=== PATIENT | male | born 1950 | race Two or more races ===

== ENCOUNTER 2018-06-10 11:31 | Inpatient (IN) | payer OTHER ==
[~2018-06-10] VITALS: Ht 165.1 cm; Wt 108.8 kg
[2018-06-10 13:19] LABS: Basophils # (auto) 0 uL; Basophils % (auto) 0.4 % (0.0-2.0); Eosinophils # (auto) 0.2 uL; Eosinophils % (auto) 2.9 % (0.0-7.0); Hematocrit 34.3 % (41.0-53.0); Lymphocytes % (auto) 14.6 % (10.0-50.0); Mean Corpuscular Hemoglobin 29.8 pg (28.0-32.0); Mean Corpuscular Hgb Conc. 32.1 g/dL (32.0-36.0); Mean Corpuscular Volume 92.8 fL (80.0-100.0); Monocytes # (auto) 0.5 uL; Monocytes % (auto) 7.1 % (0.0-12.0); Neutrophils # (auto) 5.3 uL; Nucleated Red Blood Cells % 0.1 %; Platelet Count (auto) 240 10^3/uL (140-450); Red Blood Cells 3.69 10^6/uL (4.5-5.90); Red Cell Distribution Width 19.6 % (11.8-14.3); White Blood Cell 7.1 10^3/uL (4.4-10.8)
[2018-06-10 13:46] LABS: Alanine Aminotransferase 12 U/L (16-61); Albumin 2.9 g/dL (3.4-5.0); Alkaline Phosphatase 135 U/L (45-117); Anion Gap 10 (5-15); Aspartate Aminotransferase 14 U/L (15-37); BUN/Creatinine Ratio 6.9; Bilirubin, Total 0.4 mg/dL (0.2-1.0); Blood Urea Nitrogen 47 mg/dL (7-18); Calcium 9.2 mg/dL (8.5-10.1); Carbon Dioxide 22 mmol/L (21-32); Chloride 100 mmol/L (98-107); GFR African American 10 mL/min; GFR Non-African American 9 mL/min; Glucose 129 mg/dL (74-106); Potassium 4.1 mmol/L (3.5-5.1); Sodium 132 mmol/L (136-145)
[2018-06-10 13:50] LABS: INR 0.96 (0.9-1.15); Partial Thromboplastin Time 28.2 sec (23.78-33.04); Prothrombin Time 10.3 sec (9.27-12.13)
[2018-06-10] MEDS ORDERED: LACTULOSE 20Gm/30ML SOLN PO PRN (14:30)
[2018-06-10] MEDS ORDERED: NITROGLYCERIN 0.4 MG SL TAB SL PRN (14:30)
[2018-06-10] MEDS ORDERED: LORazepam 0.5 MG TAB PO PRN (14:30)
[2018-06-10] MEDS ORDERED: ACETAMINOPHEN 500 MG TAB PO PRN (14:30)
[2018-06-10] MEDS ORDERED: MORPHINE SULF INJ 2 MG/ML SYRINGE 1ML IV PRN ×2 (14:30→15:45)
[2018-06-10] MEDS ORDERED: ENOXAPARIN SOD 30 MG/0.3 ML SYRINGE SC ONE (14:30)
[2018-06-10] MEDS ORDERED: MORPHINE SULFATE 4 MG/ML SYR/VIAL IV PRN (14:30)
[2018-06-10] MEDS ORDERED: PROMETHAZINE HCL 25 MG/ML 1ML IV PRN (14:30)
[2018-06-10] MEDS ORDERED: HYDROcodone-ACET 5/325MG TAB PO PRN (14:30)
[2018-06-10] MEDS ORDERED: TEMAZEPAM 15 MG CAP PO PRN (14:30)
[2018-06-10] MEDS ORDERED: CALC667C PO (16:10)
[2018-06-10] MEDS ORDERED: APIX2.5T PO (16:10)
[2018-06-10] MEDS ORDERED: PANT40TA2 PO (16:10)
[2018-06-10] MEDS ORDERED: SEVE800T8 PO (16:10)
[2018-06-10] MEDS ORDERED: MIDO5TAB PO (16:10)
[2018-06-10] MEDS ORDERED: GLIM4TAB42 PO (16:10)
[2018-06-10] MEDS ORDERED: AMIO200T33 PO (16:10)
[2018-06-10] MEDS: InsuLIN REG 1unit/0.01ml Soln (100units/ml) SC SCH ×2 (17:00→22:00)
[2018-06-10 17:08] VITALS: BP 105/69
[2018-06-10] MEDS: DEXTROSE (50%) 50ML SYRG IV PRN ×2 (19:13→22:29)
[2018-06-10] MEDS: ACCU-CHEK COMFORT CURVE STRIP VI SCH ×2 (19:13→22:29)
[2018-06-10] MEDS: SODIUM CHLOR 0.9% PF (SALINE LOCK) 10ML VIAL/SYR IV SCH (22:00)
[2018-06-10 22:06] VITALS: BP 137/59
[2018-06-11] MEDS: DEXTROSE (50%) 50ML SYRG IV PRN ×3 (02:13→08:21)
[2018-06-11] MEDS ORDERED: D5W 5% 1,000 ML IV ONE (02:15)
[2018-06-11 05:00] VITALS: BP 133/68
[2018-06-11] MEDS: SODIUM CHLOR 0.9% PF (SALINE LOCK) 10ML VIAL/SYR IV SCH ×3 (06:00→23:09)
[2018-06-11] MEDS: InsuLIN REG 1unit/0.01ml Soln (100units/ml) SC SCH ×4 (06:38→22:00)
[2018-06-11] MEDS: ACCU-CHEK COMFORT CURVE STRIP VI SCH ×4 (06:38→23:10)
[2018-06-11 08:00] VITALS: BP 128/62
[2018-06-11] MEDS: Glucerna Carbsteady SHAKE Vanilla 8oz PO SCH ×2 (08:00→17:46)
[2018-06-11] MEDS ORDERED: SODIUM CHL 0.9% 1000 ML BAG XX ONE (08:00)
[2018-06-11] MEDS: DEXTROSE 10% 1,000 ML IV SCH (09:27)
[2018-06-11 09:45] VITALS: BP 128/62
[2018-06-11] MEDS ORDERED: ENOXAPARIN SOD 30 MG/0.3 ML SYRINGE SC SCH (10:00)
[2018-06-11] MEDS: SEVELAMER 800 MG TAB PO SCH ×2 (12:00→17:45)
[2018-06-11] MEDS: CALCIUM ACETATE 667 MG CAP PO SCH ×2 (12:00→17:45)
[2018-06-11 13:00] VITALS: BP 108/60
[2018-06-11] MEDS ORDERED: PATIENTS OWN MEDICATION (Sevelamer Carbonate (Renvela) 800 MG) PO SCH (14:00)
[2018-06-11] MEDS ORDERED: MIDODRINE HCL 5 MG PO SCH (14:00)
[2018-06-11] MEDS: APIXABAN 2.5 MG TAB PO SCH ×2 (15:12→22:15)
[2018-06-11] MEDS: MIDODRINE HCL 10 MG TAB PO SCH ×2 (15:12→22:19)
[2018-06-11] MEDS: AMIODARONE HCL 200 MG TAB PO SCH (15:12)
[2018-06-11] MEDS: PANTOPRAZOLE 40 MG TAB PO SCH (15:12)
[2018-06-11 16:59] VITALS: BP 106/53
[2018-06-11 22:00] VITALS: BP 109/52
[2018-06-12] MEDS: DEXTROSE 10% 1,000 ML IV SCH ×2 (02:15→22:27)
[2018-06-12 05:00] VITALS: BP 127/55
[2018-06-12] MEDS: ACCU-CHEK COMFORT CURVE STRIP VI SCH ×4 (06:38→22:26)
[2018-06-12] MEDS: InsuLIN REG 1unit/0.01ml Soln (100units/ml) SC SCH ×4 (06:38→22:00)
[2018-06-12] MEDS: SODIUM CHLOR 0.9% PF (SALINE LOCK) 10ML VIAL/SYR IV SCH ×3 (06:38→22:25)
[2018-06-12] MEDS: MIDODRINE HCL 10 MG TAB PO SCH ×3 (06:38→22:00)
[2018-06-12 07:31] LABS: BUN/Creatinine Ratio 5.4; Calcium 7.8 mg/dL (8.5-10.1); Phosphorus 1.7 mg/dL (2.5-4.90); Potassium 3.1 mmol/L (3.5-5.1)
[2018-06-12 08:00] VITALS: BP 118/53
[2018-06-12] MEDS: Glucerna Carbsteady SHAKE Vanilla 8oz PO SCH ×2 (08:00→18:00)
[2018-06-12] MEDS: CALCIUM ACETATE 667 MG CAP PO SCH ×3 (08:10→18:14)
[2018-06-12] MEDS: SEVELAMER 800 MG TAB PO SCH ×2 (08:11→12:29)
[2018-06-12 09:00] VITALS: BP 118/53
[2018-06-12] MEDS ORDERED: PANTOPRAZOLE SODIUM SESQUIHYDR PO SCH (10:00)
[2018-06-12] MEDS: AMIODARONE HCL 200 MG TAB PO SCH (10:30)
[2018-06-12] MEDS: APIXABAN 2.5 MG TAB PO SCH ×2 (10:31→22:25)
[2018-06-12] MEDS: PANTOPRAZOLE 40 MG TAB PO SCH (10:31)
[2018-06-12 13:00] VITALS: BP 123/59
[2018-06-12 17:00] VITALS: BP 124/56
[2018-06-12 22:00] VITALS: BP 151/51
[2018-06-13 05:00] VITALS: BP 122/63
[2018-06-13 05:54] LABS: Calcium 7.8 mg/dL (8.5-10.1); Potassium 3.3 mmol/L (3.5-5.1)
[2018-06-13] MEDS: MIDODRINE HCL 10 MG TAB PO SCH ×3 (06:00→21:56)
[2018-06-13] MEDS: SODIUM CHLOR 0.9% PF (SALINE LOCK) 10ML VIAL/SYR IV SCH ×3 (06:56→22:00)
[2018-06-13] MEDS: ACCU-CHEK COMFORT CURVE STRIP VI SCH ×4 (06:56→22:00)
[2018-06-13] MEDS: InsuLIN REG 1unit/0.01ml Soln (100units/ml) SC SCH ×5 (06:57→22:00)
[2018-06-13] MEDS: Glucerna Carbsteady SHAKE Vanilla 8oz PO SCH (08:00)
[2018-06-13 08:16] VITALS: BP 133/68
[2018-06-13] MEDS: PANTOPRAZOLE 40 MG TAB PO SCH (09:38)
[2018-06-13] MEDS: APIXABAN 2.5 MG TAB PO SCH ×2 (09:38→21:55)
[2018-06-13] MEDS: AMIODARONE HCL 200 MG TAB PO SCH (09:38)
[2018-06-13] MEDS: CALCIUM ACETATE 667 MG CAP PO SCH ×3 (09:39→17:27)
[2018-06-13] MEDS: DEXTROSE 10% 1,000 ML IV SCH (09:39)
[2018-06-13] MEDS ORDERED: DEXTROSE 10% 1,000 ML IV SCH (11:00)
[2018-06-13] MEDS: Ensure Enlive Strawberry 8oz Bottle PO SCH ×2 (12:00→18:00)
[2018-06-13 12:59] LABS: Hepatitis A Ab IgM Negative; Hepatitis B Core IgM Negative
[2018-06-13 13:00] VITALS: BP 127/70
[2018-06-13 13:00] LABS: Hepatitis B Surface Antigen Negative (Negative); Hepatitis C Antibody Negative (Negative)
[2018-06-13 17:00] VITALS: BP 138/63
[2018-06-13] MEDS ORDERED: ASCORBIC ACID 500 MG TAB PO ONE (17:30)
[2018-06-13] MEDS: ASCORBIC ACID 500 MG TAB PO SCH (21:56)
[2018-06-13] MEDS: ATORVASTATIN 20 MG TAB PO SCH (21:56)
[2018-06-13 22:00] VITALS: BP 130/77
[2018-06-14 05:30] VITALS: BP 136/70
[2018-06-14] MEDS: InsuLIN REG 1unit/0.01ml Soln (100units/ml) SC SCH ×4 (05:49→22:00)
[2018-06-14] MEDS: ACCU-CHEK COMFORT CURVE STRIP VI SCH ×4 (05:50→22:00)
[2018-06-14] MEDS: MIDODRINE HCL 10 MG TAB PO SCH ×3 (06:13→17:19)
[2018-06-14] MEDS: SODIUM CHLOR 0.9% PF (SALINE LOCK) 10ML VIAL/SYR IV SCH ×3 (06:13→22:00)
[2018-06-14 06:20] LABS: Calcium 8.3 mg/dL (8.5-10.1); Potassium 3.2 mmol/L (3.5-5.1)
[2018-06-14] MEDS: Ensure Enlive Strawberry 8oz Bottle PO SCH ×3 (08:00→18:17)
[2018-06-14] MEDS: CALCIUM ACETATE 667 MG CAP PO SCH ×3 (08:24→18:18)
[2018-06-14 08:54] VITALS: BP 158/72
[2018-06-14] MEDS: APIXABAN 2.5 MG TAB PO SCH ×2 (09:56→22:42)
[2018-06-14] MEDS: ASCORBIC ACID 500 MG TAB PO SCH ×2 (09:56→22:42)
[2018-06-14] MEDS: PANTOPRAZOLE 40 MG TAB PO SCH (09:56)
[2018-06-14] MEDS: AMIODARONE HCL 200 MG TAB PO SCH (09:57)
[2018-06-14 11:52] VITALS: BP 152/68
[2018-06-14 17:39] VITALS: BP 124/61
[2018-06-14 21:43] VITALS: BP 136/79
[2018-06-14] MEDS: ATORVASTATIN 20 MG TAB PO SCH (22:42)
[2018-06-15 05:30] VITALS: BP 131/56
[2018-06-15] MEDS: ACCU-CHEK COMFORT CURVE STRIP VI SCH ×2 (06:05→11:30)
[2018-06-15] MEDS: InsuLIN REG 1unit/0.01ml Soln (100units/ml) SC SCH ×2 (06:05→11:30)
[2018-06-15] MEDS: SODIUM CHLOR 0.9% PF (SALINE LOCK) 10ML VIAL/SYR IV SCH ×2 (06:06→13:26)
[2018-06-15] MEDS: MIDODRINE HCL 10 MG TAB PO SCH ×2 (06:12→13:27)
[2018-06-15] MEDS: Ensure Enlive Strawberry 8oz Bottle PO SCH ×2 (08:00→12:14)
[2018-06-15 08:43] VITALS: BP 132/68
[2018-06-15] MEDS: CALCIUM ACETATE 667 MG CAP PO SCH ×2 (10:45→12:15)
[2018-06-15] MEDS: AMIODARONE HCL 200 MG TAB PO SCH (10:47)
[2018-06-15] MEDS: PANTOPRAZOLE 40 MG TAB PO SCH (10:47)
[2018-06-15] MEDS: ASCORBIC ACID 500 MG TAB PO SCH (10:47)
[2018-06-15] MEDS: APIXABAN 2.5 MG TAB PO SCH (10:47)
[2018-06-15 12:15] VITALS: BP 129/63
== END 2018-06-15 15:15 | disposition home or self-care (01) | DRG 682 ==
LOC: ER 11:31 → TELE 11:32 → TELE-CENTR 15:42 → CENTRAL 06-13 11:30
PROVIDERS: ADMIT Internal Medicine; ATTEND Internal Medicine
PROC: 5A1D70Z Performance of Urinary Filtration, Intermittent, Less than 6 Hours Per Day (ICD-10-PCS; principal; 2018-06-11)
PROC: 5A1D70Z Performance of Urinary Filtration, Intermittent, Less than 6 Hours Per Day (ICD-10-PCS; 2018-06-14)
DX: I12.0 Hypertensive chronic kidney disease with stage 5 chronic kidney disease or end stage renal disease (principal); N18.6 End stage renal disease; E87.1 Hypo-osmolality and hyponatremia; J96.10 Chronic respiratory failure, unspecified whether with hypoxia or hypercapnia; E11.649 Type 2 diabetes mellitus with hypoglycemia without coma; E11.51 Type 2 diabetes mellitus with diabetic peripheral angiopathy without gangrene; E11.22 Type 2 diabetes mellitus with diabetic chronic kidney disease; E66.01 Morbid (severe) obesity due to excess calories; D63.8 Anemia in other chronic diseases classified elsewhere; I25.10 Atherosclerotic heart disease of native coronary artery without angina pectoris; Z83.3 Family history of diabetes mellitus; Z89.512 Acquired absence of left leg below knee; Z89.612 Acquired absence of left leg above knee; Z89.511 Acquired absence of right leg below knee; Z89.611 Acquired absence of right leg above knee; Z99.2 Dependence on renal dialysis; Z95.5 Presence of coronary angioplasty implant and graft; Z88.5 Allergy status to narcotic agent; Z88.8 Allergy status to other drugs, medicaments and biological substances
CPT/HCPCS: 36415; 71045; 80048; 80053; 80074; 82962; 83036; 84100; 84484; 85025; 85610; 85730; 87081; 90935; 93005; 94761; 96372; J1815

== ENCOUNTER 2018-06-30 21:54 | Inpatient (IN) | payer OTHER ==
[~2018-06-30] VITALS: Ht 152.4 cm; Wt 122.7 kg
[~2018-06-30 21:54] MED LIST: AMIO200T33 PO; APIX2.5T PO; CALC667C PO; GLIM4TAB42 PO; MIDO5TAB PO; PANT40TA2 PO; SEVE800T8 PO
[2018-06-30 23:04] LABS: Basophils # (auto) 0 uL; Basophils % (auto) 0.5 % (0.0-2.0); Eosinophils # (auto) 0.1 uL; Eosinophils % (auto) 1.5 % (0.0-7.0); Hematocrit 40.4 % (41.0-53.0); Hemoglobin 12.7 g/dL (13.5-17.5); Lymphocytes # (auto) 0.7 uL; Lymphocytes % (auto) 9.3 % (10.0-50.0); Mean Corpuscular Hemoglobin 30.3 pg (28.0-32.0); Mean Corpuscular Hgb Conc. 31.5 g/dL (32.0-36.0); Mean Corpuscular Volume 96.1 fL (80.0-100.0); Monocytes # (auto) 0.5 uL; Monocytes % (auto) 6.9 % (0.0-12.0); Neutrophils # (auto) 5.8 uL; Neutrophils % (auto) 81.8 % (37.0-80.0); Nucleated Red Blood Cells % 0.6 %; Platelet Count (auto) 234 10^3/uL (140-450); Red Blood Cells 4.21 10^6/uL (4.5-5.90); White Blood Cell 7.1 10^3/uL (4.4-10.8)
[2018-06-30 23:09] LABS: Red Cell Distribution Width 20.6 % (11.8-14.3)
[2018-06-30 23:26] LABS: Albumin 2.5 g/dL (3.4-5.0); BUN/Creatinine Ratio 3.8; Bilirubin, Total 0.5 mg/dL (0.2-1.0); Calcium 7.2 mg/dL (8.5-10.1); Magnesium 2.1 mg/dL (1.6-2.6); Total Protein 7.3 g/dL (6.4-8.2)
[2018-06-30 23:27] LABS: Potassium 2.9 mmol/L (3.5-5.1)
[2018-06-30] MEDS ORDERED: POTASSIUM CHL 20 Meq TABLET PO ONE (23:30)
[2018-07-01] VITALS (12 sets, daily range): BP systolic 86–104; BP diastolic 41–58
[2018-07-01] MEDS ORDERED: ONDANSETRON HCL 4 MG/2 ML VIAL IV ONE (00:15)
[2018-07-01] MEDS ORDERED: MORPHINE SULFATE 4 MG/ML SYR/VIAL IV ONE (00:15)
[2018-07-01] MEDS ORDERED: cefTRIAXone 1GM/10ml IVPUSH 10 ML IV ONE (00:15)
[2018-07-01] MEDS ORDERED: TEMAZEPAM 15 MG CAP PO PRN (02:15)
[2018-07-01] MEDS ORDERED: ONDANSETRON HCL 4 MG/2 ML VIAL IV PRN (02:15)
[2018-07-01] MEDS ORDERED: ACETAMINOPHEN 325 MG TAB PO PRN (02:15)
[2018-07-01] MEDS: MIDODRINE HCL 10 MG TAB PO SCH ×3 (05:44→17:57)
[2018-07-01] MEDS: CLINDAMYCIN 600MG IV 50 ML IV SCH ×3 (05:45→21:32)
[2018-07-01] MEDS: GLIMEPIRIDE 2 MG TAB PO SCH (05:45)
[2018-07-01] MEDS: ACCU-CHEK COMFORT CURVE STRIP VI SCH ×3 (05:45→17:41)
[2018-07-01] MEDS: InsuLIN REG 1unit/0.01ml Soln (100units/ml) SC SCH ×3 (06:00→17:41)
[2018-07-01] MEDS: SEVELAMER 800 MG TAB PO SCH ×3 (07:44→17:56)
[2018-07-01] MEDS: APIXABAN 2.5 MG TAB PO SCH ×2 (07:44→21:33)
[2018-07-01] MEDS: CALCIUM ACETATE 667 MG CAP PO SCH ×3 (07:44→17:56)
[2018-07-01] MEDS: AMIODARONE HCL 200 MG TAB PO SCH (07:44)
[2018-07-01] MEDS: PANTOPRAZOLE 40 MG TAB PO SCH (07:45)
[2018-07-01 10:03] LABS: BUN/Creatinine Ratio 3.6; Calcium 7.2 mg/dL (8.5-10.1); Potassium 3.5 mmol/L (3.5-5.1)
[2018-07-01] MEDS ORDERED: Glucerna Carbsteady SHAKE Vanilla 8oz PO SCH (12:00)
[2018-07-01] MEDS ORDERED: SODIUM CHLORIDE 0.9% 1,000 ML IV ONE (16:30)
[2018-07-01] MEDS ORDERED: SODIUM CHLORIDE 0.9% 500 ML IV ONE (16:30)
[2018-07-01] MEDS ORDERED: D5W/SOD CHLO 0.9% 1,000 ML IV ONE (18:00)
[2018-07-01] MEDS: Nepro With Carbsteady ButterPecan 8oz Carton PO SCH (18:00)
[2018-07-01] MEDS: HYDROcodone-ACET 5/325MG TAB PO PRN (21:33)
[2018-07-02] MEDS: ACCU-CHEK COMFORT CURVE STRIP VI SCH ×4 (00:10→18:23)
[2018-07-02 04:00] VITALS: BP 126/63
[2018-07-02 05:55] LABS: Basophils # (auto) 0 uL; Basophils % (auto) 0.6 % (0.0-2.0); Eosinophils # (auto) 0.2 uL
[2018-07-02 05:59] LABS: Eosinophils % (auto) 2.7 % (0.0-7.0); Hematocrit 38.3 % (41.0-53.0); Hemoglobin 12.1 g/dL (13.5-17.5); Lymphocytes % (auto) 16.1 % (10.0-50.0); Mean Corpuscular Hemoglobin 30.6 pg (28.0-32.0); Mean Corpuscular Hgb Conc. 31.7 g/dL (32.0-36.0); Mean Corpuscular Volume 96.5 fL (80.0-100.0); Monocytes # (auto) 0.7 uL; Monocytes % (auto) 11.1 % (0.0-12.0); Neutrophils # (auto) 4.5 uL; Neutrophils % (auto) 69.5 % (37.0-80.0); Nucleated Red Blood Cells % 0.5 %; Platelet Count (auto) 168 10^3/uL (140-450); Red Blood Cells 3.97 10^6/uL (4.5-5.90); White Blood Cell 6.5 10^3/uL (4.4-10.8)
[2018-07-02] MEDS: InsuLIN REG 1unit/0.01ml Soln (100units/ml) SC SCH ×4 (06:00→18:00)
[2018-07-02 06:33] LABS: Albumin 2.3 g/dL (3.4-5.0); BUN/Creatinine Ratio 4.8; Bilirubin, Total 0.4 mg/dL (0.2-1.0); Calcium 7.5 mg/dL (8.5-10.1); Potassium 4.1 mmol/L (3.5-5.1); Total Protein 7.1 g/dL (6.4-8.2)
[2018-07-02] MEDS: CLINDAMYCIN 600MG IV 50 ML IV SCH ×3 (06:39→22:16)
[2018-07-02] MEDS: MIDODRINE HCL 10 MG TAB PO SCH ×4 (06:39→18:32)
[2018-07-02] MEDS: GLIMEPIRIDE 2 MG TAB PO SCH (07:00)
[2018-07-02] MEDS ORDERED: SODIUM CHL 0.9% 1000 ML BAG XX ONE (07:00)
[2018-07-02 08:10] VITALS: BP 109/55
[2018-07-02] MEDS: CALCIUM ACETATE 667 MG CAP PO SCH ×3 (09:00→18:00)
[2018-07-02] MEDS: SEVELAMER 800 MG TAB PO SCH ×4 (09:00→18:31)
[2018-07-02] MEDS: Nepro With Carbsteady ButterPecan 8oz Carton PO SCH ×2 (09:00→18:00)
[2018-07-02] MEDS: APIXABAN 2.5 MG TAB PO SCH ×2 (09:00→22:17)
[2018-07-02] MEDS: PANTOPRAZOLE 40 MG TAB PO SCH (09:01)
[2018-07-02] MEDS: MULTIPLE VITAMINS W/ MINERALS TAB PO SCH (09:01)
[2018-07-02] MEDS: AMIODARONE HCL 200 MG TAB PO SCH (10:00)
[2018-07-02] MEDS: ALBUMIN 25% 100 ML IV SCH ×2 (10:10→11:30)
[2018-07-02 11:47] VITALS: BP 118/68
[2018-07-02 13:05] VITALS: BP 114/50
[2018-07-02 15:54] VITALS: BP 116/69
[2018-07-02] MEDS: DEXTROSE (50%) 50ML SYRG IV PRN ×2 (18:22→22:30)
[2018-07-02 21:35] VITALS: BP 108/58
[2018-07-02] MEDS: HYDROcodone-ACET 5/325MG TAB PO PRN (22:30)
[2018-07-03] MEDS: DEXTROSE (50%) 50ML SYRG IV PRN ×6 (00:51→18:08)
[2018-07-03 04:55] VITALS: BP 135/72
[2018-07-03] MEDS: CLINDAMYCIN 600MG IV 50 ML IV SCH ×3 (05:52→22:27)
[2018-07-03] MEDS: MIDODRINE HCL 10 MG TAB PO SCH ×3 (05:53→18:06)
[2018-07-03] MEDS: InsuLIN REG 1unit/0.01ml Soln (100units/ml) SC SCH ×3 (06:00→12:00)
[2018-07-03] MEDS: ACCU-CHEK COMFORT CURVE STRIP VI SCH ×5 (06:00→20:20)
[2018-07-03] MEDS: GLIMEPIRIDE 2 MG TAB PO SCH (07:00)
[2018-07-03] MEDS: Nepro With Carbsteady ButterPecan 8oz Carton PO SCH ×2 (08:00→18:00)
[2018-07-03] MEDS: SEVELAMER 800 MG TAB PO SCH ×3 (08:20→18:07)
[2018-07-03] MEDS: CALCIUM ACETATE 667 MG CAP PO SCH ×3 (08:20→18:06)
[2018-07-03 09:00] VITALS: BP 118/57
[2018-07-03] MEDS: AMIODARONE HCL 200 MG TAB PO SCH (10:00)
[2018-07-03] MEDS ORDERED: LEVOFLOXACIN 250MG 50 ML IV ONE (10:00)
[2018-07-03] MEDS: APIXABAN 2.5 MG TAB PO SCH ×2 (10:02→22:00)
[2018-07-03] MEDS: MULTIPLE VITAMINS W/ MINERALS TAB PO SCH (10:02)
[2018-07-03] MEDS: PANTOPRAZOLE 40 MG TAB PO SCH (10:02)
[2018-07-03 13:10] VITALS: BP 94/49
[2018-07-03] MEDS: DEXTROSE 10% 1,000 ML IV SCH ×2 (14:45→20:20)
[2018-07-03 17:54] VITALS: BP 115/59
[2018-07-03] MEDS: PIPERACILLIN-TAZOB 2.25GM 50 ML IV SCH ×2 (18:06→22:27)
[2018-07-03 19:06] LABS: Basophils # (auto) 0 uL; Eosinophils # (auto) 0.1 uL; Hemoglobin 11.4 g/dL (13.5-17.5); Lymphocytes # (auto) 0.9 uL; Mean Corpuscular Hemoglobin 30.4 pg (28.0-32.0); Mean Corpuscular Volume 99.3 fL (80.0-100.0); Platelet Count (auto) 197 10^3/uL (140-450); White Blood Cell 6.3 10^3/uL (4.4-10.8)
[2018-07-03 19:07] LABS: Basophils % (auto) 0.4 % (0.0-2.0); Eosinophils % (auto) 1.6 % (0.0-7.0); Hematocrit 37.2 % (41.0-53.0); Lymphocytes % (auto) 14.6 % (10.0-50.0); Mean Corpuscular Hgb Conc. 30.7 g/dL (32.0-36.0); Monocytes # (auto) 0.6 uL; Monocytes % (auto) 9.9 % (0.0-12.0); Neutrophils # (auto) 4.6 uL; Neutrophils % (auto) 73.5 % (37.0-80.0); Nucleated Red Blood Cells % 0.5 %; Red Blood Cells 3.74 10^6/uL (4.5-5.90)
[2018-07-03 19:18] LABS: Red Cell Distribution Width 21.2 % (11.8-14.3)
[2018-07-03 19:26] LABS: Albumin 2.8 g/dL (3.4-5.0); BUN/Creatinine Ratio 4.8; Bilirubin, Total 0.4 mg/dL (0.2-1.0); Calcium 7.9 mg/dL (8.5-10.1); Potassium 3.6 mmol/L (3.5-5.1); Total Protein 7.3 g/dL (6.4-8.2)
[2018-07-03 19:35] VITALS: BP 102/49
[2018-07-03] MEDS ORDERED: ACCU-CHEK COMFORT CURVE STRIP VI SCH (22:00)
[2018-07-04] VITALS (10 sets, daily range): BP systolic 118–138; BP diastolic 54–68
[2018-07-04] MEDS: DEXTROSE (50%) 50ML SYRG IV PRN ×3 (00:49→08:50)
[2018-07-04] MEDS: DEXTROSE 10% 1,000 ML IV SCH (04:45)
[2018-07-04] MEDS ORDERED: methylPREDNISolone SOD SUCC 125 MG/2 ML VL IV ONE (05:00)
[2018-07-04] MEDS: CLINDAMYCIN 600MG IV 50 ML IV SCH (05:26)
[2018-07-04] MEDS: PIPERACILLIN-TAZOB 2.25GM 50 ML IV SCH ×3 (05:26→22:29)
[2018-07-04] MEDS: MIDODRINE HCL 10 MG TAB PO SCH ×3 (05:33→18:43)
[2018-07-04] MEDS: ACCU-CHEK COMFORT CURVE STRIP VI SCH ×8 (06:00→22:25)
[2018-07-04 06:15] LABS: Albumin 2.2 g/dL (3.4-5.0); BUN/Creatinine Ratio 4.8; Calcium 7.4 mg/dL (8.5-10.1)
[2018-07-04 06:16] LABS: Basophils # (auto) 0 uL; Basophils % (auto) 0.3 % (0.0-2.0); Eosinophils # (auto) 0.2 uL; Eosinophils % (auto) 3.1 % (0.0-7.0); Hematocrit 32.1 % (41.0-53.0); Hemoglobin 10.3 g/dL (13.5-17.5); Lymphocytes % (auto) 17.1 % (10.0-50.0); Mean Corpuscular Hemoglobin 31.7 pg (28.0-32.0); Mean Corpuscular Hgb Conc. 32.2 g/dL (32.0-36.0); Mean Corpuscular Volume 98.4 fL (80.0-100.0); Monocytes # (auto) 0.6 uL; Monocytes % (auto) 11.5 % (0.0-12.0); Neutrophils # (auto) 3.8 uL; Nucleated Red Blood Cells % 0.2 %; Platelet Count (auto) 152 10^3/uL (140-450); Red Blood Cells 3.27 10^6/uL (4.5-5.90); White Blood Cell 5.6 10^3/uL (4.4-10.8)
[2018-07-04 06:18] LABS: Bilirubin, Total 0.4 mg/dL (0.2-1.0); Total Protein 5.9 g/dL (6.4-8.2)
[2018-07-04 06:26] LABS: Potassium 2.9 mmol/L (3.5-5.1)
[2018-07-04 06:33] LABS: Red Cell Distribution Width 21.1 % (11.8-14.3)
[2018-07-04] MEDS: GLIMEPIRIDE 2 MG TAB PO SCH (06:59)
[2018-07-04] MEDS ORDERED: LIDOCAINE 2% IV ONE (07:30)
[2018-07-04] MEDS ORDERED: SODIUM CHL 0.9% IV ONE (07:30)
[2018-07-04] MEDS ORDERED: POTASSIUM CHLORIDE IV ONE (07:30)
[2018-07-04] MEDS: SEVELAMER 800 MG TAB PO SCH ×3 (08:00→18:43)
[2018-07-04] MEDS ORDERED: LEVOFLOXACIN 500MG 100 ML IV ONE (08:00)
[2018-07-04] MEDS: CALCIUM ACETATE 667 MG CAP PO SCH ×3 (08:00→18:43)
[2018-07-04] MEDS: Nepro With Carbsteady ButterPecan 8oz Carton PO SCH ×2 (08:00→18:00)
[2018-07-04] MEDS ORDERED: cefTRIAXone 1GM/10ml IVPUSH 10 ML IV SCH (09:00)
[2018-07-04] MEDS: MULTIPLE VITAMINS W/ MINERALS TAB PO SCH (10:00)
[2018-07-04] MEDS: APIXABAN 2.5 MG TAB PO SCH ×2 (10:00→22:29)
[2018-07-04] MEDS: PANTOPRAZOLE 40 MG TAB PO SCH (10:00)
[2018-07-04] MEDS: AMIODARONE HCL 200 MG TAB PO SCH (10:00)
[2018-07-04 15:35] LABS: Albumin 2.3 g/dL (3.4-5.0); BUN/Creatinine Ratio 5.5; Bilirubin, Total 0.4 mg/dL (0.2-1.0); Calcium 7.8 mg/dL (8.5-10.1); Potassium 4.2 mmol/L (3.5-5.1); Total Protein 6.5 g/dL (6.4-8.2)
[2018-07-04] MEDS ORDERED: DEXTROSE (50%) 50ML SYRG IV PRN ×2 (16:45→20:15)
[2018-07-04] MEDS ORDERED: DEXTROSE 10% 1,000 ML IV SCH (17:15)
[2018-07-04] MEDS ORDERED: InsuLIN REG 1unit/0.01ml Soln (100units/ml) SC SCH (20:00)
[2018-07-04] MEDS ORDERED: ACCU-CHEK COMFORT CURVE STRIP VI SCH (20:00)
[2018-07-05] MEDS: ACCU-CHEK COMFORT CURVE STRIP VI SCH ×8 (00:30→20:40)
[2018-07-05 00:50] VITALS: BP 133/63
[2018-07-05] MEDS ORDERED: InsuLIN REG 1unit/0.01ml Soln (100units/ml) SC ONE ×3 (01:15→06:15)
[2018-07-05] MEDS ORDERED: SODIUM CHLORIDE 0.9% 250 ML IV ONE (03:00)
[2018-07-05 04:00] VITALS: BP 125/64
[2018-07-05 05:34] LABS: Basophils # (auto) 0 uL; Basophils % (auto) 0.1 % (0.0-2.0); Eosinophils # (auto) 0 uL; Hematocrit 29.7 % (41.0-53.0); Hemoglobin 9.4 g/dL (13.5-17.5); Lymphocytes # (auto) 0.3 uL; Lymphocytes % (auto) 8.2 % (10.0-50.0); Mean Corpuscular Hemoglobin 30.8 pg (28.0-32.0); Mean Corpuscular Hgb Conc. 31.6 g/dL (32.0-36.0); Mean Corpuscular Volume 97.6 fL (80.0-100.0); Monocytes # (auto) 0.2 uL; Neutrophils # (auto) 3.4 uL; Neutrophils % (auto) 85.7 % (37.0-80.0); Nucleated Red Blood Cells % 0.3 %; Platelet Count (auto) 156 10^3/uL (140-450); Red Blood Cells 3.05 10^6/uL (4.5-5.90); White Blood Cell 3.9 10^3/uL (4.4-10.8)
[2018-07-05 05:46] LABS: Albumin 2.1 g/dL (3.4-5.0); Calcium 7.9 mg/dL (8.5-10.1); Potassium 3.5 mmol/L (3.5-5.1); Red Cell Distribution Width 20.3 % (11.8-14.3)
[2018-07-05 05:51] LABS: BUN/Creatinine Ratio 6.6; Bilirubin, Total 0.4 mg/dL (0.2-1.0)
[2018-07-05] MEDS: PIPERACILLIN-TAZOB 2.25GM 50 ML IV SCH ×3 (05:53→23:04)
[2018-07-05] MEDS: MIDODRINE HCL 10 MG TAB PO SCH ×3 (05:53→17:24)
[2018-07-05 08:00] VITALS: BP 129/73
[2018-07-05] MEDS: SEVELAMER 800 MG TAB PO SCH ×3 (08:00→17:24)
[2018-07-05] MEDS: CALCIUM ACETATE 667 MG CAP PO SCH ×3 (08:00→17:24)
[2018-07-05] MEDS: Nepro With Carbsteady ButterPecan 8oz Carton PO SCH ×2 (08:53→17:24)
[2018-07-05] MEDS ORDERED: EPOETIN ALFA 10,000 UNIT/1 ML VIAL IV ONE (09:15)
[2018-07-05] MEDS ORDERED: DEXTROSE (50%) 50ML SYRG IV PRN (10:00)
[2018-07-05] MEDS ORDERED: LEVOFLOXACIN 250MG 50 ML IV SCH ×3 (10:00→11:15)
[2018-07-05] MEDS ORDERED: CIPROFLOXACIN 400MG/200ML 200 ML IV ONE (11:15)
[2018-07-05 12:00] VITALS: BP 129/73
[2018-07-05] MEDS: InsuLIN REG 1unit/0.01ml Soln (100units/ml) SC SCH ×3 (12:00→20:40)
[2018-07-05] MEDS: AMIODARONE HCL 200 MG TAB PO SCH (12:30)
[2018-07-05] MEDS: PANTOPRAZOLE 40 MG TAB PO SCH (12:30)
[2018-07-05] MEDS: APIXABAN 2.5 MG TAB PO SCH ×2 (12:30→23:04)
[2018-07-05] MEDS: MULTIPLE VITAMINS W/ MINERALS TAB PO SCH (12:30)
[2018-07-05] MEDS: HYDROcodone-ACET 5/325MG TAB PO PRN ×2 (14:41→20:40)
[2018-07-05 16:31] VITALS: BP 108/53
[2018-07-05 20:21] VITALS: BP 122/48
[2018-07-06] VITALS (8 sets, daily range): BP systolic 107–126; BP diastolic 30–58
[2018-07-06] MEDS: ACCU-CHEK COMFORT CURVE STRIP VI SCH ×7 (00:11→23:34)
[2018-07-06] MEDS: InsuLIN REG 1unit/0.01ml Soln (100units/ml) SC SCH ×7 (04:47→23:34)
[2018-07-06 05:03] LABS: Basophils # (auto) 0 uL; Basophils % (auto) 0.3 % (0.0-2.0); Eosinophils # (auto) 0.1 uL; Hematocrit 30.8 % (41.0-53.0); Hemoglobin 9.9 g/dL (13.5-17.5); Lymphocytes # (auto) 0.9 uL; Mean Corpuscular Hemoglobin 30.6 pg (28.0-32.0); Mean Corpuscular Hgb Conc. 32.1 g/dL (32.0-36.0); Mean Corpuscular Volume 95.2 fL (80.0-100.0); Monocytes # (auto) 0.5 uL; Monocytes % (auto) 10.1 % (0.0-12.0); Neutrophils # (auto) 3.7 uL; Neutrophils % (auto) 71.6 % (37.0-80.0); Nucleated Red Blood Cells % 0.2 %; Platelet Count (auto) 175 10^3/uL (140-450); Red Blood Cells 3.24 10^6/uL (4.5-5.90); Red Cell Distribution Width 19.9 % (11.8-14.3); White Blood Cell 5.1 10^3/uL (4.4-10.8)
[2018-07-06 05:26] LABS: Albumin 2.3 g/dL (3.4-5.0); BUN/Creatinine Ratio 6.9; Calcium 7.9 mg/dL (8.5-10.1)
[2018-07-06 05:30] LABS: Total Protein 6.1 g/dL (6.4-8.2)
[2018-07-06 05:32] LABS: Potassium 2.9 mmol/L (3.5-5.1)
[2018-07-06] MEDS: MIDODRINE HCL 10 MG TAB PO SCH ×3 (06:00→17:28)
[2018-07-06] MEDS: PIPERACILLIN-TAZOB 2.25GM 50 ML IV SCH ×3 (06:06→21:40)
[2018-07-06] MEDS ORDERED: POTASSIUM EFFERVESENT TAB 25 MEQ PO ONE (06:15)
[2018-07-06] MEDS: Nepro With Carbsteady ButterPecan 8oz Carton PO SCH ×2 (08:00→20:33)
[2018-07-06] MEDS: SEVELAMER 800 MG TAB PO SCH ×3 (08:57→20:30)
[2018-07-06] MEDS: CALCIUM ACETATE 667 MG CAP PO SCH ×3 (08:57→20:33)
[2018-07-06] MEDS ORDERED: CIPROFLOXACIN 400MG/200ML 200 ML IV SCH (10:00)
[2018-07-06] MEDS: MULTIPLE VITAMINS W/ MINERALS TAB PO SCH (10:24)
[2018-07-06] MEDS: PANTOPRAZOLE 40 MG TAB PO SCH (10:24)
[2018-07-06] MEDS: AMIODARONE HCL 200 MG TAB PO SCH (10:24)
[2018-07-06] MEDS: APIXABAN 2.5 MG TAB PO SCH ×2 (10:24→21:40)
[2018-07-06] MEDS ORDERED: VANCOMYCIN 1GM/250ML 250 ML IV ONE ×2 (13:45→17:45)
[2018-07-06] MEDS ORDERED: DOXYCYCLINE 100 MG TAB/CAP PO ONE (13:45)
[2018-07-06] MEDS ORDERED: VANCOMYCIN PER PHARMACY 1,000 MG IV SCH (13:45)
[2018-07-06] MEDS: DOXYCYCLINE 100 MG TAB/CAP PO SCH (21:40)
[2018-07-07] MEDS: HYDROcodone-ACET 5/325MG TAB PO PRN (03:18)
[2018-07-07] MEDS: InsuLIN REG 1unit/0.01ml Soln (100units/ml) SC SCH ×3 (03:44→11:53)
[2018-07-07] MEDS: ACCU-CHEK COMFORT CURVE STRIP VI SCH ×3 (03:44→12:12)
[2018-07-07 04:04] VITALS: BP 115/45
[2018-07-07] MEDS: MIDODRINE HCL 10 MG TAB PO SCH ×2 (05:57→12:13)
[2018-07-07] MEDS: PIPERACILLIN-TAZOB 2.25GM 50 ML IV SCH (05:57)
[2018-07-07 08:00] VITALS: BP 123/53
[2018-07-07] MEDS: Nepro With Carbsteady ButterPecan 8oz Carton PO SCH (08:00)
[2018-07-07] MEDS: AMIODARONE HCL 200 MG TAB PO SCH ×2 (09:46→09:58)
[2018-07-07] MEDS: DOXYCYCLINE 100 MG TAB/CAP PO SCH (09:46)
[2018-07-07] MEDS: MULTIPLE VITAMINS W/ MINERALS TAB PO SCH (09:46)
[2018-07-07] MEDS: APIXABAN 2.5 MG TAB PO SCH ×2 (09:46→09:58)
[2018-07-07] MEDS: CALCIUM ACETATE 667 MG CAP PO SCH ×2 (09:46→12:13)
[2018-07-07] MEDS: PANTOPRAZOLE 40 MG TAB PO SCH (09:46)
[2018-07-07] MEDS: SEVELAMER 800 MG TAB PO SCH ×2 (09:46→12:12)
[2018-07-07 12:00] VITALS: BP 105/54
== END 2018-07-07 16:40 | disposition home health service (06) | DRG 871 ==
LOC: ER 21:54 → WEST WING 21:55 → DOU IN ICU 07-03 19:20
PROVIDERS: ADMIT Nurse Practitioner; ATTEND Family Medicine
PROC: 5A1D70Z Performance of Urinary Filtration, Intermittent, Less than 6 Hours Per Day (ICD-10-PCS; 2018-07-02)
PROC: 5A09357 Assistance with Respiratory Ventilation, Less than 24 Consecutive Hours, Continuous Positive Airway Pressure (ICD-10-PCS; principal; 2018-07-04)
PROC: 5A09357 Assistance with Respiratory Ventilation, Less than 24 Consecutive Hours, Continuous Positive Airway Pressure (ICD-10-PCS; 2018-07-05)
PROC: 5A1D70Z Performance of Urinary Filtration, Intermittent, Less than 6 Hours Per Day (ICD-10-PCS; 2018-07-05)
DX: A41.9 Sepsis, unspecified organism (principal); N18.6 End stage renal disease; J96.20 Acute and chronic respiratory failure, unspecified whether with hypoxia or hypercapnia; J18.9 Pneumonia, unspecified organism; I13.2 Hypertensive heart and chronic kidney disease with heart failure and with stage 5 chronic kidney disease, or end stage renal disease; E46 Unspecified protein-calorie malnutrition; Z68.43 Body mass index [BMI] 50.0-59.9, adult; E87.6 Hypokalemia; E11.65 Type 2 diabetes mellitus with hyperglycemia; D63.1 Anemia in chronic kidney disease; E11.22 Type 2 diabetes mellitus with diabetic chronic kidney disease; E11.51 Type 2 diabetes mellitus with diabetic peripheral angiopathy without gangrene; G47.30 Sleep apnea, unspecified; B96.5 Pseudomonas (aeruginosa) (mallei) (pseudomallei) as the cause of diseases classified elsewhere; E66.01 Morbid (severe) obesity due to excess calories; I25.10 Atherosclerotic heart disease of native coronary artery without angina pectoris; I50.9 Heart failure, unspecified; L89.322 Pressure ulcer of left buttock, stage 2; L89.312 Pressure ulcer of right buttock, stage 2; Z83.3 Family history of diabetes mellitus; Z89.611 Acquired absence of right leg above knee; Z89.612 Acquired absence of left leg above knee; Z95.5 Presence of coronary angioplasty implant and graft; Z99.2 Dependence on renal dialysis; Z99.81 Dependence on supplemental oxygen; Z79.899 Other long term (current) drug therapy; Z88.8 Allergy status to other drugs, medicaments and biological substances; Z79.4 Long term (current) use of insulin
CPT/HCPCS: 36415; 36600; 71045; 80048; 80053; 82805; 82962; 83036; 83605; 83735; 85025; 87040; 87077; 87081; 87186; 87205; 87493; 90935; 93005; 94660; 96374; 96375; J0885; J1642; J1815; J1956; J2001; J2405; J2543; J3490; J7042; P9047